=== PATIENT | male | born 1995 | race Caucasian/White ===

== ENCOUNTER 2018-09-23 16:29 | Observation (INO) | payer SELFPAY ==
[~2018-09-23] VITALS: Ht 185.4 cm; Wt 77.2 kg
[2018-09-23] MEDS ORDERED: VYVANSE40 MG PO (16:59)
--- NOTE | 2018-09-23 21:00 | NUR ---
PT ARRIVES TO ROOM 129 AT 2024 VIA STRETCHER. PT ABLE TO MOVE HIMSELF OVER ONTO THE BED WITH MINIMAL ASSISTANCE. PT IS DROWSY, BUT ANSWERS QUESTIONS APPROPRIATELY. LUNGS CLEAR, RA. HR 100, REGULAR. BOWEL TONES ACTIVE. DENIES PAIN AND NAUSEA. IV SITES PATENT, INFUSING WNL. CB, TITRATED INSULIN DRIP TO 2.4 UNITS/HR (WAS 4.2 UNITS/HR UPON ARRIVAL), VERIFIED WITH FADY DUARTE. IVF SWITCHED TO D5 1/2NS AND BICARB INFUSION STARTED. SKIN APPEARS GROSSLY INTACT. CALL LIGHT WITHIN REACH.
--- NOTE | 2018-09-23 21:30 | NUR ---
PT VOIDED 1000ML INTO URINAL, SPILLED A LITTLE ON HIS UNDERWEAR SO I HAD HIM REMOVED THEM AND I PLACED THEM IN A PLASTIC BAG AND PLACED WITH HIS BELONGINGS. LAB IN TO DRAW SAMPLE AT THIS TIME.
--- NOTE | 2018-09-23 22:00 | NUR ---
CB, INSULIN DRIP TITRATED TO 1 UNIT/HR, VERIFIED WITH FADY DUARTE.
--- NOTE | 2018-09-23 23:02 | NUR ---
CB, TITRATED INSULIN DRIP TO 1.2 UNITS/HR, VERIFIED WITH FADY BUCHANAN.
--- NOTE | 2018-09-24 00:05 | NUR ---
CB, NO TITRATION OF INSULIN DRIP REQUIRED AT THIS TIME. PT IS SLEEPING SOUNDLY, RESPIRATIONS EVEN AND UNLABORED, RR:17, SPO2: 99% ON RA. HR: 110'S. PT DOES NOT APPEAR TO BE IN ANY DISTRESS. IVF INFUSING WNL.
--- NOTE | 2018-09-24 01:00 | NUR ---
CB, INSULIN DRIP TITRATED TO 2.8 UNITS/HR, VERIFIED WITH FADY DUARTE.
--- NOTE | 2018-09-24 02:00 | NUR ---
CB, INSULIN DRIP TITRATED TO 2.4 UNITS/HR, VERIFIED BY FADY BUCHANAN.
--- NOTE | 2018-09-24 03:04 | NUR ---
CB, NO TITRATION OF INSULIN DRIP REQUIRED AT THIS TIME. PT CONTINUES TO SLEEP SOUNDLY. RR:16, HR: 108, SPO2: 96% ON RA.
--- NOTE | 2018-09-24 03:28 | NUR ---
UPDATED DR. VARGAS REGARDING PT'S LAB RESULTS OF POTASSIUM: 3.3, ORDERS RECEIVED FOR 40 MEQ IV POTASSIUM CHLORIDE. ALSO UPDATED HIM ON REMAINDER OF LAB RESULTS, ORDERS RECEIVED TO STOP BICARB INFUSION AT THIS TIME, TO BE RE-EVALUATED AFTER 0600 LABS.
--- NOTE | 2018-09-24 04:00 | NUR ---
CB, TITRATION OF INSULIN DRIP NOT REQUIRED AT THIS TIME. PT TEMPORAL TEMP WAS 99.6, REMOVED ALL EXTRA BLANKETS AND JUST COVERED PT WITH SHEET, ALSO DECREASED ROOM TEMP SLIGHTLY. LUNGS REMAIN CLEAR, RA. HR REGULAR, TACHY 100-110. IVF INFUSING WNL, DRESSINGS INTACT. POTASSIUM INFUSION STARTED. PT CONTINUES TO SLEEP SOUNDLY, NO APPARENT DISTRESS, RR:16. PT'S FRIEND ASLEEP ON COUCH.
--- NOTE | 2018-09-24 05:00 | NUR ---
CB, TITRATED INSULIN DRIP TO 1 UNIT/HR, VERIFIED WITH GERALD SHRESTHA.
--- NOTE | 2018-09-24 06:00 | NUR ---
CB, NO TITRATION OF INSULIN DRIP REQUIRED AT THIS TIME. PT STIRRED WHILE BP CUFF WAS INFLATING, STATING "IT HURTS." I TOLD HIM WHAT WAS HAPPENING AND THAT IT WOULD BE OVER SOON AND HE QUICKLY FELL BACK ASLEEP. CLEAN GOWN PLACED ON PT.
--- NOTE | 2018-09-24 07:02 | NUR ---
CB, NO TITRATION OF INSULIN DRIP REQUIRED AT THIS TIME.
--- NOTE | 2018-09-24 07:35 | NUR ---
PT RESTING IN BED AT THIS TIME. PT HAS A FRIEND IN THE ROOM. PER REPORT PT HAS BEEN SLEEPING MOST OF THE NIGHT. PT DENIES ANY NEEDS AT THIS TIME. WILL CONTINUE TO CLOSELY MONITOR.
--- NOTE | 2018-09-24 08:30 | NUR ---
ASSESSMENT DONE. pt RESTING WITH EYES CLOSED, OBEYS COMMANDS, DID NOT ANSWER QUESTIONS AT THIS TIME, ALLOWED TO SLEEP. IV'S PATENT. TITRATED INSULIN DRIP TO 1.2 PER BLOOD SUGAR FLOW SHEET. VISITOR AT BEDSIDE. CALL LIGHT WITHIN REACH.
--- NOTE | 2018-09-24 09:00 | NUR ---
CBG DONE. DRIP TITRATED TO 0.9 PER FLOW SHEET.
--- NOTE | 2018-09-24 10:09 | NUR ---
CBG DONE. INSULIN DRIP TITRATED TO 1.2 PER FLOW SHEET. URINALS EMPTIED. NO REQUESTS AT THIS TIME.
--- NOTE | 2018-09-24 11:05 | NUR ---
CBG DONE. NO CHANGES TO INSULIN DRIP PER FLOWSHEET.
--- NOTE | 2018-09-24 11:53 | NUR ---
UPDATED PT ABOUT PLAN OF CARE. UPDATED THAT PATIENT WILL MOST LIKELY STAY ANOTHER DAY AND PT WILL REMAIN ON INSULIN GTT AT THIS TIME AND WILL CHECK NEXT SET OF LABS THIS AFTERNOON. PER MD PT MAY ORDER AN ADA DIET.
--- NOTE | 2018-09-24 14:12 | NUR ---
CBG DONE. INSULIN DRIP TITRATED TO 5.1 PER FLOW SHEET. MD IN ROOM TO ASSESS pt AND UPDATE ON PLAN OF CARE. pt FINISHED LUNCH OF [employer] SALAD. CALL LIGHT WITHIN REACH. NO REQUESTS AT THIS TIME.
--- NOTE | 2018-09-24 16:06 | NUR ---
CBG DONE. TITRATED INSULIN TO 2 PER FLOWSHEET. ASSESSMENT DONE. pt AWAKE AND ALERT. ATE JELLO AND WAS PROVIDED DIET COLA. NO FURTHER REQUESTS AT THIS TIME. CALL LIGHT WITHIN REACH.
--- NOTE | 2018-09-24 17:16 | NUR ---
CBG DONE. TITRATED INSULIN TO 2.4 PER FLOWSHEET. DINNER ORDERED. ENCOURAGED pt TO VOID. CALL LIGHT WITHIN REACH.
--- NOTE | 2018-09-24 17:36 | EKG ---
[facility] [address] [facility] [place] [address] Signed Sinus tachycardia with Possible Left atrial enlargement Nonspecific ST and T wave abnormality Abnormal ECG No previous ECGs available Confirmed by FRANC VARGAS DO ([id number]) on 09/24/2018 5:35:53 PM Electronically Signed By: FRANC VARGAS DO 09/24/18 1736 PATIENT NAME: GREYSON VAZQUEZ GLADIS Electrocardiogram DATE OF : [birth year] PHYSICIAN: FRANC VARGAS DO REPORT #: [id number] REPORT IS CONFIDENTIAL AND NOT TO BE RELEASED WITHOUT AUTHORIZATION
--- NOTE | 2018-09-24 18:04 | NUR ---
pt REQUESTED A NICOTINE LOZENGE, OFFERED PATCH, pt REFUSED. ORDER ENTERED NIO. CBG DONE, NO CHANGES TO INSULIN DRIP AT THIS TIME PER FLOWSHEET. MORE FOOD ORDERED PER REQUEST.
--- NOTE | 2018-09-24 19:30 | NUR ---
SHIFT REPORT RECEIVED FROM FADY RIVERA. PT IS CURENTLY SITTING UP IN BED AND WATCHING TV. HE HAS FINISHED 100% OF HIS DINNER TRAY AND IS TOLERATING WELL. INSULIN DRIP CURRENTLY INFUSING AT 5.1 UNITS/HR. IVF ALSO INFUSING WNL. CALL LIGHT WITHIN REACH.
--- NOTE | 2018-09-24 20:00 | NUR ---
CB, INSULIN DRIP TITRATED TO 8.4 UNITS/HR, VERIFIED WITH FADY COLON. ASSESSMENT COMPLETED, SEE DOCUMENTATION. PT DENIES REQUESTS AT THIS TIME, CALL LIGHT IS WITHIN REACH.
--- NOTE | 2018-09-24 21:00 | NUR ---
DR. VARGAS IN UNIT, DISCUSSED WITH HIM PT'S MOST RECENT LAB VALUES, NEW ORDERS ENTERED BY MD. PLAN TO ADMINSTER LANTUS AND D/C INSULIN DRIP AND IVF IN 1 HOUR. CB, TITRATED INSULIN DRIP TO 6.8 UNITS/HR, VERIFIED WITH ISAIAH SHRESTHA. 5 UNITS SLIDING SCALE AND 35 UNITS LANTUS ADMINISTERED. PT PROVIDED WITH 2X SUGAR-FREE PUDDINGS PER REQUEST. 40MEQ PO POTASSIUM ADMINISTERED PER ORDER AND 40MEQ IV POTASSIUM STARTED.
--- NOTE | 2018-09-24 22:00 | NUR ---
INSULIN DRIP AND D5 1/2 NS IVF STOPPED AT THIS TIME. LEFT AC IV SALINE LOCKED, PATENT. POTASSIUM INFUSION CONTINUES IN RIGHT AC, NO S/SX OF INFILTRATION NOTED.
--- NOTE | 2018-09-25 00:15 | NUR ---
ASSESSMENT COMPLETED. HR NO LONGER TACHY, RATE IN THE 80'S. OTHERWISE, NO CHANGES FROM PREVIOUS ASSESSMENT.
--- NOTE | 2018-09-25 01:20 | NUR ---
IV POTASSIUM INFUSION COMPLETED, IV SALINE LOCKED AND PATENT. SITE APPEARS WNL, DRESSING INTACT.
--- NOTE | 2018-09-25 04:15 | NUR ---
PT SLEEPING AT THIS TIME, NO APPARENT DISTRESS. RESPIRATIONS EVEN AND UNLABORED, RR:16, HR:86. CHECKED CBG TO MAKE SURE PT'S BLOOD SUGAR HADN'T DROPPED SINCE RECEIVING LANTUS, CB. WILL ALLOW FOR REST AND CONTINUE TO MONITOR.
--- NOTE | 2018-09-25 08:15 | NUR ---
PT ALERT AND ORIENTED X4, UP AMBULATED TO THE BATHROOM ON HIS OWN. PT ABLE TO VOID. PT DOES OWN ORAL CARES/AM CARES. PT STEADY ON HIS FEET. PT DENIES NAUSEA, PAIN, AND SOB. VITALS WNL AT THIS TIME. PT COOPERATIVE AND POLITE. PT THEN TO CHAIR FOR BREAKFAST.
--- NOTE | 2018-09-25 09:20 | NUR ---
PT FINISHED WITH SHOWER, AMBULATES BACK TO ROOM FROM 126 INDEPENDENTLY. PT COMPLETLY INDEPENDENT IN SHOWER.
[2018-09-25] MEDS ORDERED: PALIPERIDONE ER6 MG PO (09:38)
[2018-09-25] MEDS ORDERED: NOVOLOG FL100 UNIT/1 SUB-Q (09:40)
[2018-09-25] MEDS ORDERED: TOUJEO SOL300 UNIT/1 SUB-Q ×2 (09:40→11:25)
[2018-09-25] MEDS ORDERED: VYVANSE30 MG PO (11:12)
--- NOTE | 2018-09-25 11:12 | NUR ---
PT SITTING UP IN CHAIR WATCHING TV AT THIS TIME. DENIES PAIN, NAUSEA, AND SOB AT THIS TIME. PT AMBULATES INDEPENDENTLY IN THE ROOM. PT IS ALERT AND ORIENTED X4.
--- NOTE | 2018-09-25 11:13 | NUR ---
MED REC COMPLETE
[2018-09-25] MEDS ORDERED: NICORETTE4 M2 BUCCAL (11:23)
--- NOTE | 2018-09-25 13:10 | NUR ---
FOUR DOLLARS IN BROWN FOUND IN PT ROOM. CONTACT PHONE NUMBER CALLED. MONEY PLACED IN A LARGE ENVALOPE WITH PT LABLE ON OUTSIDE AT THE LENS GRINDER.
== END 2018-09-25 12:40 | disposition home or self-care (01) ==
LOC: ED 16:29 → CCU 16:31
PROVIDERS: ADMIT Student in an Organized Health Care Education/Training Program
DX: E10.10 Type 1 diabetes mellitus with ketoacidosis without coma (principal); E86.0 Dehydration; F20.9 Schizophrenia, unspecified; F17.200 Nicotine dependence, unspecified, uncomplicated; F15.10 Other stimulant abuse, uncomplicated; Z79.899 Other long term (current) drug therapy; Z79.4 Long term (current) use of insulin
CPT/HCPCS: 36415; 36600; 71045; 80048; 80053; 81001; 82010; 82803; 83605; 83735; 84100; 85025; 87502; 93005; 93010; 96361; 96365; 96366; 96374; 96375; 96376; 99285-25; 99406; G0378; J1815; J2405; J3480; J7030; J7042; J7060; J7120

== ENCOUNTER 2018-10-16 18:29 | Emergency (ER) | payer SELFPAY ==
[~2018-10-16] VITALS: Ht 188 cm; Wt 80.8 kg
--- OUTSIDE RECORDS SUMMARY | ~2018-10-16 | XMS | Clinical Summary ---
Demographics + + + | Address | [address] ADDRESS | | | [place] [address] | + + + | Home Phone | | + + + | Preferred Language | Unknown | + + + | Marital Status | Single | + + + | Zoroastrian Affiliation | Unknown | + + + | Race | Unknown | + + + | Ethnic Group | Unknown | + + + Author + + + | Author | [facility] | | | and [place] | + + + | Organization | [facility] | | | and [place] | + + + | Address | Unknown | + + + | Phone | Unavailable | + + + Support + + + + + | Name | Relationship | Address | Phone | + + + + + | Jackie Heath | ECON | [address] | | | | | [place] | | | | | [address] | | + + + + + Care Team Providers + +------+ + | Care Assembler [employer] Name | Role | Phone | + +------+ + | Tamera Hay NP | PP | | + +------+ + Allergies No Known Allergies Current Medications + + + +---------+------+------+-------+ | Prescription | Sig. | Disp. | Refills | Star | End | Statu | | | | | | t | Date | s | | | | | | Date | | | + + + +---------+------+------+-------+ | insulin aspart | Inject 1 Units under | 3 | 1 | 12/1 | | Activ | | (NOVOLOG PENFILL) | the skin 3 times | Cartridge | | 2/20 | | e | | 100 units/mL | daily (before | | | 17 | | | | injection cartridge | meals). 1 unit per | | | | | | | | 15 gm carbsPlus | | | | | | | | sliding scale1 unit | | | | | | | | to 50 mg/liter over | | | | | | | | 110-115 | | | | | | + + + +---------+------+------+-------+ | insulin glargine | Inject 80 Units | 3 pen | 1 | 12/1 | | Activ | | (TOSANTO SOLOSTAR) | under the skin | | | 2/20 | | e | | 300 units/mL | nightly. | | | 17 | | | | concentrated | | | | | | | | injection (pen) | | | | | | | + + + +---------+------+------+-------+ Active Problems + + + | Problem | Noted Date | + + + | Hypophosphatemia | 06/21/2018 | + + + | Hypokalemia | 06/21/2018 | + + + | Acute kidney injury (HCC) | 06/20/2018 | + + + | Methamphetamine abuse (HCC) | 06/20/2018 | + + + | Toxic metabolic encephalopathy | 06/20/2018 | + + + | Sternal pain | 06/19/2018 | + + + | Diabetic ketoacidosis without coma associated with type 1 | 06/30/2017 | | diabetes mellitus (HCC) | | + + + + + | Last Assessment & Plan: DKA protocol as ordered. | | Electrolyte monitoring and follow on closure of anion gap. | | Aggressive IV fluid resuscitation. | | Telemetry monitoring. | | Supportive care and symptomatic treatment. | | Antiemetics as needed. | | Checking hemoglobin A1c. | | Diabetic education and teaching. | | Diabetic diet as ordered. | + + + + + | Uncontrolled diabetes mellitus type 1 without complications (HCC) | 06/30/2017 | + + + + + | Last Assessment & Plan: After DKA resolved.Glargine and | | lispro insulin titration as needed.Insulin slide scale and | | Accu-Cheks with titration as needed for therapeutic glucose | | level.Checking hemoglobin A1c.Diabetic education and | | teaching.Diabetic diet as ordered. | + + Immunizations + + + + | Name | Dates Previously Given | Next Due | + + + + | DTAP, 5 DOSE (PED) | 04/01/2001, 10/19/1999, 11/15/1998, | | | | 08/30/1998 | | + + + + | DTP (PED) | 07/02/1998, 06/02/1998 | | + + + + | HIB HBOC CONJUGATE, | 07/02/1998, 06/02/1998 | | | 4 DOSE (PED) | | | + + + + | Hep B (PED/ADOL) 3 | 11/15/1998, 08/30/1998, 07/02/1998, | | | DOSE | 06/02/1998 | | + + + + | IPV, 4 DOSE | 04/01/2001 | | | (PED/ADULT) | | | + + + + | MMR, 2 DOSE | 08/30/1998, 07/02/1998, 06/02/1998 | | | (PED/ADULT) | | | + + + + | PNEUMOCOCCAL | 03/20/2018 | | | POLYSACCHARIDE | | | | 23-VALENT (PPSV23) | | | + + + + | POLIOVIRUS,OPV | 11/15/1998, 08/30/1998, 07/02/1998, | | | (LIVE) | 06/02/1998 | | + + + + | TDAP, (ADOL/ADULT) | 03/20/2018 | | + + + + | VARICELLA, 2 DOSE | 04/01/2001 | | | (VARIVAX) | | | + + + + Social History + +-------+ +--------+------+ | Tobacco Use | Types | Packs/Day | Years | Date | | | | | Used | | + +-------+ +--------+------+ | Current Every Day | | 0.5 | 8 | | | Smoker | | | | | + +-------+ +--------+------+ + +---+---+---+ | Smokeless Tobacco: | | | | | Current User | | | | + +---+---+---+ + + | Tobacco Cessation: Ready to Quit: No; Counseling Given: No | + + + + +---------+ + | Alcohol Use | Drinks/We | oz/Week | Comments | | | ek | | | + + +---------+ + | Yes | 2 | 2.4 | Denies drinking everyday | | | Glasses | | | | | of wine | | | | | 2 Cans of | | | | | beer | | | + + +---------+ + + + + | Sex Assigned at | Date Recorded | | | | + + + | Not on file | | + + + Last Filed Vital Signs + + + + | Vital Sign | Reading | Time Taken | + + + + | Blood Pressure | 136/76 | 06/21/2018 1300 PST | + + + + | Pulse | 97 | 06/21/2018 1300 PST | + + + + | Temperature | 37 C (98.6 F) | 06/21/2018 1112 PST | + + + + | Respiratory Rate | 15 | 06/21/2018 1300 PST | + + + + | Oxygen Saturation | 95% | 06/21/2018 1300 PST | + + + + | Inhaled Oxygen | - | - | | Concentration | | | + + + + | Weight | 82.5 kg (181 lb 14.1 | 06/21/2018 0400 PST | | | oz) | | + + + + | Height | 188 cm (6' 2") | 06/20/2018404 PST | + + + + | Body Mass Index | 23.35 | 06/21/2018399 PST | + + + + Plan of Treatment + + + + + | Health Maintenance | Due Date | Last Done | Comments | + + + + + | Well Child Check | | | | | | 0 | | | + + + + + | Vaccine: HPV (1 - | | | | | Male 3-dose series) | 2 | | | + + + + + | Diabetic Eye Exam | | | | | | 5 | | | + + + + + | Diabetic Foot Exam | | | | | | 5 | | | + + + + + | Vaccine: Influenza | | | | | (#1) | 8 | | | + + + + + | Hemoglobin A1c Q3 | | 06/20/2018, 12/06/2017, | | | Months | 9 | 07/01/2017 | | + + + + + | Vaccine: | | 03/20/2018, 04/01/2001, | | | Dtap/Tdap/Td (7 - | 8 | 10/19/1999, Additional history | | | Td) | | exists | | + + + + + | Vaccine: | Completed | 03/20/2018 | | | Pneumococcal 19-64 | | | | | (PPSV23 only) Medium | | | | | Risk | | | | + + + + + Results Not on filefrom Last 3 Months Insurance + +--------+ +------+ +---------+ | Payer | Benefi | Subscriber | Type | Phone | Address | | | t Plan | ID | | | | | | / | | | | | | | Group | | | | | + +--------+ +------+ +---------+ | [facility] | [place] | [id number] | PPO | [phone] | | | | | | | [phone] | | | | HEALTH | | | | | | | CARE | | | | | | | PPO | | | | | + +--------+ +------+ +---------+ + +--------+ +--------+ + + | Guarantor Name | Accoun | Relation to | Date | Phone | Billing Address | | | t Type | Patient | of | | | | | | | | | | + +--------+ +--------+ + + | JUNIOR VAZQUEZ | Person | Self [birth year] | Home: | NEED ADDRESS | | | al/Fam | | 1994 | [phone] | [place] | | | nicole | | | [phone] | + +--------+ +--------+ + + | UJNIOR VAZQUEZ | Third | Self | [birth year] | Home: | NEED ADDRESS | | | Republican | | 1994 | [phone] | [place] | | | [place] | | | [phone] | [phone] | | | [place] | | | | | + +--------+ +--------+ + +
--- OUTSIDE RECORDS SUMMARY | ~2018-10-16 | XMS | Clinical Summary ---
Demographics + + + | Address | [address] ADDRESS | | | [place] [address] | + + + | Home Phone | | + + + | Preferred Language | Unknown | + + + | Marital Status | Single | + + + | Anabaptist Affiliation | Unknown | + + + | Race | Unknown | + + + | Ethnic Group | Unknown | + + + Author + + + | Author | [facility] | | | and [place] | + + + | Organization | [facility] | | | and [...] [place] | | | | | [phone] | | + + + + + Care Team Providers + +------+ + | Care Market Research Associate Name | Role | Phone | + [...] | | + +--------+ +------+ +---------+ | [facility] | [place] | [id number] | PPO | [phone] | | | | | | | [...] al/Fam | | 1994 | [phone] | [place] | | | nicole | | | [phone] | [phone] | + +--------+ +--------+ + + | JUNIOR VAZQUEZ | Third | Self | [birth year] | Home: | NEED ADDRESS | | | [employer] | | 1994 | [phone] | [place] | | | [place] | | | [phone] | [phone] | | | [place] | | | | | + +--------+ +--------+ + +
[~2018-10-16 18:29] MED LIST: NICORETTE4 M2 BUCCAL; NOVOLOG FL100 UNIT/1 SUB-Q; PALIPERIDONE ER6 MG PO; TOUJEO SOL300 UNIT/1 SUB-Q; VYVANSE30 MG PO; VYVANSE40 MG PO
--- OUTSIDE RECORDS SUMMARY | 2018-10-16 18:32 | XMS ---
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 Ari has no Care Guidelines for this patient. Jerry VISIT COUNT (12 MO.) 2 [facility] [place] [facility] TOTAL 2 NOTE: Visits indicate total known visits. ED/[facility] VISIT TRACKING (12 MO.) 10/16/2018 18:29 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
[2018-10-16] MEDS ORDERED: LANTUS100 UNITS/ SUB-Q (21:46)
== END 2018-10-16 21:59 | disposition home or self-care (01) ==
LOC: ED 18:29
DX: E10.65 Type 1 diabetes mellitus with hyperglycemia (principal); J45.909 Unspecified asthma, uncomplicated; F17.200 Nicotine dependence, unspecified, uncomplicated; Z79.899 Other long term (current) drug therapy
CPT/HCPCS: 80053; 82010; 82800; 85025; 96361; 96374; 99284-25; J1815; J7030

== ENCOUNTER 2019-03-31 22:08 | Observation (INO) | payer OTHER ==
[~2019-03-31] VITALS: Ht 188 cm; Wt 68.6 kg
[~2019-03-31 22:08] MED LIST changes: +LANTUS100 UNITS/ SUB-Q
--- OUTSIDE RECORDS SUMMARY | 2019-03-31 22:12 | XMS ---
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 Ari has no Care Guidelines for this patient. Jerry VISIT COUNT (12 MO.) 3 [facility] TOTAL 3 NOTE: Visits indicate total known visits. 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 - Nicotine dependence, unspecified, uncomplicated - Unspecified asthma, uncomplicated 09/23/2018 16:30 [facility] [place] TYPE: Emergency COMPLAINT: - SOB INPATIENT VISIT TRACKING (12 MO.) 09/23/2018 16:31 [facility] [place] TYPE: Observation COMPLAINT: - DKA DIAGNOSES: - Schizophrenia, unspecified - 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
--- NOTE | 2019-04-01 02:13 | NUR ---
PT ADMITTED TO CCU FOR ENCEPHALOPATHY. PT IS VERY SLEEPY, DIFFICULT TO AROUSE AND PUPILS ARE VERY SLUGGISH. DOES ANSWER QUESTIONS WITH YES OR NO WITH MUCH VERBAL STIMULATION. TRANSFERRED TO BED FROM [facility] USING DRAW SHEET, PT SLEPT THROUGH. VSS. BLOOD SUGAR 225, WILL GIVE LANTUS AND 2 UNITS SS INSULIN. BOLUS CURRENTLY INFUSING THEN WILL START IVF AT 150ML/HR. IV ROCEPHIN STARTED.
--- NOTE | 2019-04-01 04:31 | NUR ---
PT CONTINUES TO SLEEP. AWAKENS SLIGHTLY FOR ASSESSMENT, ANSWERS NO WHEN ASKED IF HE IS IN PAIN. OCCASIONALLY TURNING SELF OVER IN BED/ADJUSTING PILLOWS AND BLANKETS.
--- NOTE | 2019-04-01 07:22 | NUR ---
PT AWAKENS TO VOID, USES URINAL IN BED TO VOID 1000ML
--- NOTE | 2019-04-01 08:34 | NUR ---
PT ALSEEP BUT AWAKENS WHEN SPOKEN TO. PT DENIES PAIN AT THIS TIME.
[2019-04-01] MEDS ORDERED: TOUJEO SOL300 UNIT/1 SUB-Q (09:11)
--- NOTE | 2019-04-01 09:41 | NUR ---
DR WEST INTO SEE PT NEW ORDERS RECEIVED. PT IS AWAKE SITTING UP IN BED EATTING BKF AT THIS TIME. PT IS TAKE ORAL INTAKE WELL AND IS COOPERATIVE WITH HOSPITAL ROUTINE.
--- NOTE | 2019-04-01 10:06 | NUR ---
PT ATE BKF AND IS NOW ASLEEP AT THIS TIME. RESP RATE EVEN AND SPO2 100% ON ROOM AIR.
--- NOTE | 2019-04-01 12:50 | NUR ---
PT AWAKE AND EATTING LUNCH IN BED AT THIS TIME
--- NOTE | 2019-04-01 13:27 | NUR ---
PT SLEEPING AT THIS TIME.
--- NOTE | 2019-04-01 13:36 | NUR ---
FADY PARK REQUESTED I NOT VISIT PT TODAY PER DR WEST'S ORDERS. WILL FOLLOW NEEDED
--- NOTE | 2019-04-01 13:58 | NUR ---
LAB HERE TO OBTAIN SAMPLE AT THIS TIME. CBG OBTAINED ALSO AT THIS TIME.
[2019-04-01] MEDS ORDERED: AMOXICILLIN500 MG PO (14:37)
--- NOTE | 2019-04-01 15:23 | NUR ---
PT DISCHARGED TO HOME WITH HIS CECILIA. SHE IS HERE AT THIS TIME, BUT PT CONTIOUES TO WANT TO SLEEP. PT IS VERY PASTIVE WITH STAFF ABOUT FOLLOW-UP CARE. ENCOURAGE PT TO GET DRESS AND OFFERED TO HELP HIM, BUT HE CONTIOUES TO SLEEP.
--- NOTE | 2019-04-01 15:34 | NUR ---
PT DISCHARGED TO [facility]. SHE WAS GIVEN INFORMATION AND ALL QUESTIONS ANSWERED. ENCOURAGE THEM TO METAL FLOORING INSTALLER THE MEDICATION ABX'S AT RIGHT AID AND IF THEY HAVE PROBLEMS DUE TO THE LACK OF INSURANCE TO CALL OR COME BACK TO THE HOSPITAL AND THIS MD PSYCHIATRY WILL HELP THEM GET THE ABX'S.
== END 2019-04-01 15:30 | disposition home or self-care (01) ==
LOC: ED 22:08 → CCU 22:10
PROVIDERS: ADMIT Internal Medicine
DX: G92 Toxic encephalopathy (principal); N17.9 Acute kidney failure, unspecified; E10.10 Type 1 diabetes mellitus with ketoacidosis without coma; E86.0 Dehydration; F17.200 Nicotine dependence, unspecified, uncomplicated; F15.10 Other stimulant abuse, uncomplicated; J02.0 Streptococcal pharyngitis; F20.0 Paranoid schizophrenia; Z79.899 Other long term (current) drug therapy; Z79.4 Long term (current) use of insulin
CPT/HCPCS: 36415; 70450; 71045; 80048; 80053; 81001; 82010; 82800; 83605; 85025; 85610; 85730; 87880; 96374; 99285-25; G0378; G0480; J0696; J1815; J2310; J7030; J7120; J7121

== ENCOUNTER 2019-04-27 20:26 | Observation (INO) | payer OTHER ==
[~2019-04-27] VITALS: Ht 188 cm; Wt 66.2 kg
[~2019-04-27 20:26] MED LIST changes: +AMOXICILLIN500 MG PO
--- OUTSIDE RECORDS SUMMARY | 2019-04-27 20:28 | XMS ---
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 Ari has no Care Guidelines for this patient. [facility] NOTE: Visits indicate total known visits. ED/C VIS[facility] TR[facility] (12 MO.) [facility] COMPLAINT: - DIABETIC ISSUES,SUICIDAL 03/31/2019 22:09 [facility] [place] TYPE: Emergency COMPLAINT: - DRUG USE, VOMITING, DIABETIC PROBLEM 10/16/2018 18:29 [facility] [place] TYPE: Emergency COMPLAINT: - BLOOD SUGAR PROBLEM DIAGNOSES: - Type 1 diabetes mellitus with hyperglycemia - Hyperglycemia, unspecified - Other [place] [facility] (current) drug therapy - Nicotine dependence, unspecified, uncomplicated - Unspecified asthma, uncomplicated 09/23/2018 16:30 [facility] [place] TYPE: Emergency COMPLAINT: - SOB INPATIENT VISIT TRACKING (12 MO.) 03/31/2019 22:10 [facility] [place] TYPE: Observation COMPLAINT: - ENCEPHALOPATHY DIAGNOSES: - Altered mental status, unspecified - jail (current) use of insulin - Streptococcal pharyngitis - Other stimulant abuse, uncomplicated - Dehydration - Acute kidney failure, unspecified - Type 1 diabetes mellitus with ketoacidosis without coma - Other [place] [facility] [place] (current) drug therapy - Nicotine dependence, unspecified, uncomplicated - Toxic encephalopathy - Paranoid schizophrenia 09/23/2018 16:31 [facility] [place] TYPE: Observation COMPLAINT: - DKA DIAGNOSES: - Schizophrenia, unspecified - jail (current) use of insulin - Other stimulant abuse, uncomplicated - Nicotine dependence, unspecified, uncomplicated - 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
[2019-04-28] MEDS ORDERED: NOVOLOG FL100 UNIT/1 SUB-Q (08:49)
[2019-04-28] MEDS ORDERED: TOUJEO SOL300 UNIT/1 SUB-Q ×2 (08:50→11:18)
[2019-04-28] MEDS ORDERED: FREESTYLE LITE1 EAC1 TD (08:50)
[2019-04-28] MEDS ORDERED: FREESTYLE FREE1 EAC1 MISC (08:51)
== END 2019-04-28 11:25 | disposition home or self-care (01) ==
LOC: ED 20:26 → CCU 20:38
PROVIDERS: ADMIT Student in an Organized Health Care Education/Training Program
DX: E10.10 Type 1 diabetes mellitus with ketoacidosis without coma (principal); F17.200 Nicotine dependence, unspecified, uncomplicated; F20.9 Schizophrenia, unspecified; F15.10 Other stimulant abuse, uncomplicated; Z59.0 Homelessness; Z79.4 Long term (current) use of insulin; Z79.899 Other long term (current) drug therapy
CPT/HCPCS: 36415; 80048; 80053; 81001; 82010; 83735; 84100; 85025; 96361; 96374; 99285-25; G0378; G0480; J1815; J3480; J7030; J7042; J7060; J7120

== ENCOUNTER 2019-05-25 20:20 | Emergency (ER) | payer OTHER ==
[~2019-05-25] VITALS: Ht 188 cm; Wt 81.7 kg
[~2019-05-25 20:20] MED LIST changes: +FREESTYLE FREE1 EAC1 MISC; +FREESTYLE LITE1 EAC1 TD
--- OUTSIDE RECORDS SUMMARY | 2019-05-25 20:24 | XMS ---
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 [place] - 2 Visits in 30 Days CARE PROVIDERS There are no care providers on record at this time. Ari has no Care Guidelines for this patient. Care History Medical/Surgical 04/30/2019 [facility] Inpatient/engaged. We took the patient to detox. [place] VISIT COUNT (12 MO.) 5 [facility]. TOTAL 5 NOTE: Visits indicate total known visits. ED/UCC VISIT TRACKING (12 MO.) 05/25/2019 20:21 [facility] Kulkarni [place] TYPE: Emergency COMPLAINT: - BLOOD SUGAR ISSUES 04/27/2019 20:27 [facility] P[facility] [place] TYPE: Emergency COMPLAINT: - DIABETIC ISSUES,SUICIDAL 03/31/2019 22:09 [facility] P[facility]ell [place] TYPE: Emergency COMPLAINT: - DRUG USE, VOMITING, DIABETIC PROBLEM 10/16/2018 18:29 [facility] Parnell [place] TYPE: Emergency COMPLAINT: - BLOOD SUGAR PROBLEM DIAGNOSES: - 1 Type 1 diabetes mellitus with hyperglycemia - Hyperglycemia, unspecified - Other terminal system operator (current) drug therapy - Nicotine dependence, unspecified, uncomplicated - Unspecified asthma, uncomplicated 09/23/2018 16:30 [facility] P[facility]ell [place] TYPE: Emergency COMPLAINT: - SOB INPATIENT VISIT TRACKING (12 MO.) 04/27/2019 20:38 [facility]ell [place] TYPE: Observation COMPLAINT: - DKA DIAGNOSES: - Other stimulant abuse, uncomplicated - Schizophrenia, unspecified - Homelessness - Other terminal system operator (current) drug therapy - shelter (current) use of insulin - Nicotine dependence, unspecified, uncomplicated - 1 Type 1 diabetes mellitus with ketoacidosis without coma 03/31/2019 22:10 [facility] P[facility]ell [place] TYPE: Observation COMPLAINT: - ENCEPHALOPATHY DIAGNOSES: - Altered mental status, unspecified - shelter (current) use of insulin - Streptococcal pharyngitis - Other stimulant abuse, uncomplicated - Dehydration - Acute kidney failure, unspecified - 1 Type 1 diabetes mellitus with ketoacidosis without coma - Other assisted (current) drug therapy - Nicotine dependence, unspecified, uncomplicated - Toxic encephalopathy - Paranoid schizophrenia 09/23/2018 16:[address] 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
== END 2019-05-26 02:27 | disposition home or self-care (01) ==
LOC: ED 20:20
DX: E10.65 Type 1 diabetes mellitus with hyperglycemia (principal); J45.909 Unspecified asthma, uncomplicated; F17.200 Nicotine dependence, unspecified, uncomplicated; Z79.899 Other long term (current) drug therapy
CPT/HCPCS: 80048; 80053; 81001; 82010; 82803; 85025; 96361; 96374; 99284-25; J1815; J3480; J7030

== ENCOUNTER 2020-01-06 20:13 | Observation (INO) | payer OTHER ==
[~2020-01-06] VITALS: Ht 188 cm; Wt 74.4 kg
--- NOTE | 2020-01-07 00:09 | NUR ---
Report received from FADY Adams. Orders acknowledged.
--- NOTE | 2020-01-07 00:20 | NUR ---
Patient arrives to unit via stretcher. Insulin gtt infusing at 4.2 units/hr. Patient able to ambulate to hospital bed independently, steady on feet. Vital signs taken, assessment complete. Patient denies pain or nausea. Patient requests water and a sandwich, which are provided. Patient drowsy during admission assessment, rouses to voice. After admission, patient denies needs at this time. Lights off, call light within reach.
--- NOTE | 2020-01-07 01:19 | NUR ---
Patient sleeping in bed, respirations even and unlabored. BG of 241, insulin gtt titrated to 3.4 units/hr. Second RN verification by FADY Valdes. Call light within reach.
--- NOTE | 2020-01-07 02:00 | NUR ---
Patient sleeping in bed, respirations even and unlabored. BG of 277, insulin gtt titrated to 6.3 units/hr. Second RN verification. Call light within reach.
--- NOTE | 2020-01-07 03:05 | NUR ---
Patient sleeping in bed, respirations even and unlabored. BG of 281, insulin gtt titrated to 8.4 units/hr. Second RN verification. Call light within reach.
--- NOTE | 2020-01-07 04:00 | NUR ---
Patient sleeping in bed, respirations even and unlabored. BG of 261, insulin gtt remains titrated at 8.4 units/hr. Call light within reach.
--- NOTE | 2020-01-07 05:00 | NUR ---
Patient sleeping in bed, respirations even and unlabored. BG of 173, insulin gtt titrated to 4.8 units/hr. Call light within reach.
--- NOTE | 2020-01-07 06:04 | NUR ---
Patient sleeping in bed, respirations even and unlabored. BG of 172, insulin gtt remains titrated at 4.8 units/hr. Call light within reach.
--- NOTE | 2020-01-07 07:30 | NUR ---
PATIENT SHIFT REPORT RECIEVED FROM OIL INSPECTOR RN. PATIENT RESTING IN BED AT THIS TIME. PATIENT CALLS APPROPRIATELY. WILL CONTINUE TO CLOSELY MONITOR.
--- NOTE | 2020-01-07 08:10 | NUR ---
CALLED MD VARGAS. PATIENTS BLOOD SUGAR <100 AND PER INSULIN GTT ORDERS IT DOES NOT DIRECT STAFF WHAT TO DO WHEN <100. PER MD VARGAS WE MAY DC THE GTT AND START HIM ON HIS HOME DOSE OF LONG ACTING INSULIN. PATIENTS BREAKFAST ALREADY ORDERED. PATIENT FEELS FINE A THIS TIME. WILL CONTINUE TO CLSOELY MONITOR.
--- NOTE | 2020-01-07 09:15 | NUR ---
PATIENT FINISHED EATING HIS BREAKFAST. WILL LEAVE INSULIN GTT OFF PER ORDERS. PATIENT DENIES ANY OTHER NEEDS AT THIS TIME. WILL CONTINUE TO CLOSELY MONITOR.
--- NOTE | 2020-01-07 10:00 | NUR ---
SPOKE WITH MD VARGAS. PATIENTS BLOOD SUGAR IS 290'S AFTER BREAKFAST AND HAS NOT BEEN GIVEN SS D/T NO ORDERS. PER MD VARGAS WILL START PATIENT ON SS AT THIS TIME. WILL CONTINUE TO CLOSELY MONITOR.
--- NOTE | 2020-01-07 11:50 | NUR ---
PATIENT RESTING IN BED. FRESH WATER AT THE BEDSIDE. ELECTRICAL CONTROLS ASSEMBLER IN TO DO LABS. CALL LIGHT IN REACH.
[2020-01-07] MEDS ORDERED: MELOXICAM15 MG PO (12:30)
[2020-01-07] MEDS ORDERED: ATOMOXETINE HCL80 MG PO (12:30)
[2020-01-07] MEDS ORDERED: MONTELUKAST SOD10 MG PO (12:30)
--- NOTE | 2020-01-07 12:31 | NUR ---
MED REC COMPLETE
--- NOTE | 2020-01-07 13:00 | NUR ---
PATIENT LUNCH AT THE BEDSDIE. MEDICATIONS GIVEN. FRESH WATER AT THE BEDSIDE. PATIENT DENIES ANY OTHER NEEDS AT THIS TIME. WILL CONTINUE TO CLOSELY MONITOR.
[2020-01-07] MEDS ORDERED: TOUJEO SOL300 UNIT/1 SUB-Q (13:25)
[2020-01-07] MEDS ORDERED: NOVOLOG FL100 UNIT/1 SUB-Q (13:25)
[2020-01-07] MEDS ORDERED: FREESTYLE LITE1 EAC1 TD (13:25)
[2020-01-07] MEDS ORDERED: FREESTYLE FREE1 EAC1 MISC (13:25)
--- NOTE | 2020-01-07 15:15 | NUR ---
DISCHARGE PAPERWORK REVIEWED WITH PATIENT. APPOINTMENT MADE FOR PATIENT AND REVIEWED WITH PATIENT. EDUCATED TO CALL THE DAY PRIOR TO ARRANGE TRANSPORTATION FOR FREE TO AND FROM HIS APPOINTMENT. CASE MANAGEMENT PROVIDED PATIENT WITH A GLUCOMETER. EDUCATED TO PICKUP HIS PRESCRIPTIONS AT [employer] SNACK PROVIDED AT THIS TIME PRIOR TO DISCHARGE. WILL CONTINUE TO CLOSELY MONITOR.
--- NOTE | 2020-01-07 16:04 | NUR ---
PATIENT EDUCATION GATHERED/ SENT WITH PATIENT. RESPIRATORY THERAPY IN TO GIVE EDUCATION FOR SMOKING QUITE LINE. ALL MATERIALS IN PATIENTS BELONING BAG. EDUCATED PATIENT TO CALL AND ARRANGE TRANSPORTATION FOR HIS UPCOMING APPOINTMENT AND TO PRODUCTION INTERNSHIP HIS MEDICATIONS FROM [employer]. PATIENT AGREEABLE TO PLAN OF CARE. REMOVED PATIENTS IV AND GAVE PATIENT A RIDE TO THE FRONT IN THE WHEELCHAIR. PATIENT ARRAGNING A CARE RIDE HOME WITH THE REINSURANCE CLERK STAFF. GLUCOMETER ALSO SENT WITH PATIENT IN HIS PERSONAL BELONGINGS BAG. NO FURTHER NEEDS AT THIS TIME.
--- NOTE | 2020-01-07 16:10 | NUR ---
CM assessment completed. Pt states he is staying with friends, but is couch surfing. He has lost his insulin and his glucometer. Dr. Lr called in rx for meds and glucometer. I gave pt. a glucometer in case he does not make it to the pharmacy today. Pt states he is out of long acting insulin and has lost his glucomet Glucometer given. Spoke with Dr. 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 Pt does not have pcp. Does not care where he is scheduled, appt made with Shi Figueroa at [facility].
== END 2020-01-07 15:50 | disposition home or self-care (01) ==
LOC: ED 20:13 → CCU 20:15
PROVIDERS: ADMIT Student in an Organized Health Care Education/Training Program
DX: E10.10 Type 1 diabetes mellitus with ketoacidosis without coma (principal); F20.9 Schizophrenia, unspecified; F19.10 Other psychoactive substance abuse, uncomplicated; F17.200 Nicotine dependence, unspecified, uncomplicated; Z71.6 Tobacco abuse counseling
CPT/HCPCS: 36415; 80048; 80053; 81001; 82010; 82800; 83735; 85025; 96361; 96374; 99285-25; 99406; C9803; G0378; J1815; J7030; J7042; J7121; U0002

== ENCOUNTER 2020-04-05 06:20 | Inpatient (IN) | payer OTHER ==
[~2020-04-05] VITALS: Ht 188 cm; Wt 72.6 kg
[~2020-04-05 06:20] MED LIST changes: +ATOMOXETINE HCL80 MG PO; +MELOXICAM15 MG PO; +MONTELUKAST SOD10 MG PO
--- NOTE | 2020-04-05 18:35 | PATH ---
[facility] [address] [place], [place] [address] Signed ORDERING PHYSICIAN: Mike Lr MD PATIENT NAME: GREYSON VAZQUEZ GENDER: Scottie : 1995 SPECIMEN(S): No Source Given MOLECULAR PATHOLOGY RESULTS: SARS-CoV-2 Not Detected ADDITIONAL NOTES.: The Sterling Fusion SARS-CoV-2 Assay is a multiplex real-time PCR (RT-PCR) in vitro diagnostic test intended for the qualitative detection of RNA from SARS-CoV-2 from individuals who meet COVID-19 clinical and/or epidemiological criteria. In general, SARS-CoV-2 RNA can be detected during the acute phase of infection. Positive results indicate the presence of SARS-CoV-2 RNA. Clinical correlation with patient history and other diagnostic information is necessary to determine patient infection status. Positive results do not rule out bacterial infection or co-infection with other viruses. Negative results do not preclude SARS-CoV-2 infection and should not be used as the sole basis for patient management decisions. Negative results must be combined with other clinical observations, patient history, and epidemiological information. The Sterling Fusion SARS-CoV-2 Assay is not yet approved or cleared by the [place] FDA. When there are no FDA-approved or cleared tests available, and other criteria are met, FDA can make tests available under an emergency access mechanism called an Emergency Use Authorization (EUA). The EUA for this test is supported by the [place] of Health and Human Service's (HHS's) declaration that circumstances exist to justify the emergency use of in vitro diagnostics for the detection and/or diagnosis of the virus that causes COVID-19. This EUA will remain in effect for the duration of the COVID-19 declaration justifying emergency of IVDs, unless it is terminated or revoked by FDA, after which the test may no longer be used. The Sterling Fusion SARS-CoV-2 Assay is for use only under EUA in US laboratories certified under the Clinical Laboratory Improvement Amendments of 1988 (CLIA) to perform high complexity tests. [email or web address] is certified under CLIA to perform high complexity PATIENT NAME: GREYSON VAZQUEZ PATHOLOGY DATE OF : [birth year] REPORT #: [id number] PHYSICIAN: BENITO FRANCO PCP: NO PRIMARY CARE PHYSICIAN REPORT IS CONFIDENTIAL AND NOT TO BE RELEASED WITHOUT AUTHORIZATION [facility] [address] [place] [id number] Signed clinical laboratory testing. PERFORMING LABORATORY.: Molecular testing was performed by [email or web address] [place] [address] ([employer]: Joe Crane D.O.; CLIA#: [id number]) Diagnostician: System Interface Pathologist Electronically Signed 04/05/2020 Copies: ~ PATIENT NAME: GREYSON VAZQUEZ PATHOLOGY DATE OF : [birth year] REPORT #: [id number] PHYSICIAN: BENITO PATHOLOGY PCP: NO PRIMARY CARE PHYSICIAN REPORT IS CONFIDENTIAL AND NOT TO BE RELEASED WITHOUT AUTHORIZATION
[2020-04-06] MEDS ORDERED: NOVOLOG FL100 UNIT/1 SUB-Q (11:23)
[2020-04-06] MEDS ORDERED: TOUJEO SOL300 UNIT/1 SUB-Q (11:23)
[2020-04-06] MEDS ORDERED: INSULIN SYRING1 EA47 MISC (14:17)
[2020-04-06] MEDS ORDERED: LANTUS100 UNITS/ SUB-Q (14:17)
[2020-04-07] MEDS ORDERED: BASAGLAR K100 UNIT/1 SUB-Q (09:40)
== END 2020-04-08 09:50 | disposition home or self-care (01) | DRG 639 ==
LOC: ED 06:20 → CCU 07:57 → MS 07:57
PROVIDERS: ADMIT Student in an Organized Health Care Education/Training Program; ATTEND Student in an Organized Health Care Education/Training Program
DX: E10.10 Type 1 diabetes mellitus with ketoacidosis without coma (principal); Z20.828 Contact with and (suspected) exposure to other viral communicable diseases; F17.200 Nicotine dependence, unspecified, uncomplicated; F39 Unspecified mood [affective] disorder; R68.0 Hypothermia, not associated with low environmental temperature; F15.10 Other stimulant abuse, uncomplicated; F11.10 Opioid abuse, uncomplicated; Z91.14 Patient's other noncompliance with medication regimen; Z59.0 Homelessness; Z79.1 Long term (current) use of non-steroidal anti-inflammatories (NSAID); Z79.4 Long term (current) use of insulin; Z79.899 Other long term (current) drug therapy
CPT/HCPCS: 36415; 80048; 80053; 81001; 82010; 82800; 83735; 84100; 84132; 85025; 96374; 99285-25; C9803; J1650; J1815; J3475; J3480; J7030; J7040; J7042; J7060; J7121

== ENCOUNTER 2021-02-25 18:18 | Observation (INO) | payer OTHER ==
[~2021-02-25] VITALS: Ht 188 cm; Wt 73.1 kg
[~2021-02-25 18:18] MED LIST changes: +BASAGLAR K100 UNIT/1 SUB-Q; +INSULIN SYRING1 EA47 MISC
--- OUTSIDE RECORDS SUMMARY | 2021-02-25 18:20 | XMS ---
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 Care History Medical/Surgical 04/30/2019 [facility] Inpatient/engaged. We took the patient to detox. [facility] VISIT COUNT (12 MO.) 1 Saroj Sanders HJusto 1 [facility] 2 [facility] [address] [facility] TOTAL 5 NOTE: Visits indicate total known visits. ED/UCC VISIT TRACKING (12 MO.) 02/25/2021 18:19 [facility] MARY Garrido TYPE: Emergency COMPLAINT: - HIGH BLOOD SUGAR 07/13/2020 18:29 [facility] Zenaida Estevez ID TYPE: Emergency DIAGNOSES: - Withdrawl - Other stimulant abuse, uncomplicated - Auditory hallucinations - Homicidal ideations - Drug / Alcohol Assessment - Hyperglycemia, unspecified - Pain in right toe(s) 05/09/2020 18:49 [facility] [place] TYPE: Emergency DIAGNOSES: 0. EMS HYPERGLYCEMIA 04/27/2020 11:15 Saroj GARCIA [place] TYPE: Emergency DIAGNOSES: - Finger Injury - Thumb Laceration - Laceration without foreign body of left thumb without damage to nail, initial encounter 04/05/2020 06:20 RO[facility] MARY Garrido TYPE: Emergency COMPLAINT: - SOB INPATIENT VISIT TRACKING (12 MO.) 05/09/2020 21:05 [facility] TYPE: Pulmonology DIAGNOSES: 0. DKA 04/05/2020 07:[address] [facility] K[facility] [place] TYPE: Medical Surgical COMPLAINT: - DKA DIAGNOSES: - snf (current) use of insulin - terminal press operator (current) use of insulin - Other computer terminal operator (current) drug therapy - Type 1 diabetes mellitus with ketoacidosis without coma - Contact with and (suspected) exposure to other viral communicable diseases - Homelessness - Patient's other noncompliance with medication regimen - Opioid abuse, uncomplicated - Other stimulant abuse, uncomplicated - Other stimulant abuse, uncomplicated - Hypothermia, not associated with low environmental temperature - Hypothermia, not associated with low environmental temperature - terminal press operator (current) use of non-steroidal anti-inflammatories (NSAID) - Unspecified mood [affective] disorder - Patient's other noncompliance with medication regimen - Opioid abuse, uncomplicated - Contact with and (suspected) exposure to other viral communicable diseases - Unspecified mood [affective] disorder - Nicotine dependence, unspecified, uncomplicated - terminal press operator (current) use of non-steroidal anti-inflammatories (NSAID) - Nicotine dependence, unspecified, uncomplicated - Homelessness - Other usp (current) drug therapy [email or web address]
--- NOTE | 2021-02-25 21:20 | NUR ---
report recieved from CHIEF PHARMACIST at this time.
--- NOTE | 2021-02-25 21:30 | NUR ---
PT INSULIN DRIP INFUSING AT 8.8 UNITS/HR PER PROTOCOL.IV FLUIDS INFUSING AT 250 MLS AN HOUR. ASSESSMENT COMPLETED. CALL LIGHT WITHIN REACH. WILL CONTINUE TO MONITOR.
--- NOTE | 2021-02-25 21:49 | NUR ---
PT ARRIVED VIA STRETCHER WITH THIMBLE PRESS OPERATOR. PT EXTREMELY DROWSY AND UNABLE TO MOVE HIMSELF FROM STRETCHER TO BED. BLOOD SUGAR UPON ARRIVAL READ HIGH. BLOOD DRAWN AND SENT TO LAB FOR READING.
--- NOTE | 2021-02-25 22:46 | NUR ---
PT VOIDED 1200 MLS OF CLEAR URINE TO URINAL. ASSISTED WITH REPOSITIONING IN BED. IV FLUIDS AND INSULIN DRIP CONTINUE TO INFUSE.
--- NOTE | 2021-02-26 | NUR ---
INSULIN DRIP TITRATED PER PROTOCOL. ASSESSMENT COMPLETED. PT REAMINS DROWSY BUT AWAKENS TO VOICE AND TOUCH, FOLLOWING BASIC COMMANDS. IV FLUIDS INFUSING. LABS STILL PENDING AT THIS TIME. CALL LIGHT WITHIN REACH. WILL CONTINUE TO MONITOR.
--- NOTE | 2021-02-26 00:49 | NUR ---
DR WEST UPDATED ON PATIENT LABS, ORDERS RECIEVED (SEE EMAR).
--- NOTE | 2021-02-26 01:08 | NUR ---
INSULIN DRIP TITRATED PER PROTOCOL (SEE EMAR). PT REMAINS DROWSY, BUT AWAKENS TO VOICE AND FOLLOWS COMMANDS. CALL LIGHT WITHIN REACH. WILL CONTINUE TO MONITOR.
--- NOTE | 2021-02-26 02:08 | NUR ---
CB, NO TITRATED OF INSULIN DRIP REQUIRED AT THIS TIME, VERIFIED WITH FADY ARMANDO. PT SLEEPING, NO APPARENT DISTRESS.
--- NOTE | 2021-02-26 03:13 | NUR ---
PT BLOOD SUGARS NOW UNDER 200. NEW ORDERS PER DOCTOR WEST RECIEVED (SEE EMAR).
--- NOTE | 2021-02-26 03:40 | NUR ---
ASSESSMENT COMPLETED. PT REMAINS DROWSY, BUT WAKES TO VOICE. LUNGS SOUND CLEAR, ALL VITAL SIGNS WITHIN NORMAL LIMITS. PT DENIES PAIN, NAUSEA OR DISCOMFORT. IV FLUIDS AND INSULIN DRIP CONTINUE TO INFUSE. NO FURTHER NEEDS AT THIS TIME.
--- NOTE | 2021-02-26 04:09 | NUR ---
INSULIN DRIP TITRATED PER PROTOCOL, IV FLUIDS CONTINUE TO INFUSE. CALL LIGHT WITHIN REACH. NO ASSESSED NEEDS AT THIS TIME.
--- NOTE | 2021-02-26 05:21 | NUR ---
LAB IN ROOM TO DRAW BLOOD. WELL TOLERATED BY PT. OPENED HIS EYES AND ANSWERS QUESTIONS APPROPRIATELY. INSULIN DRIP TITRATED PER PROTOCOL (SEE EMAR). IV FLUIDS INFUSING. WILL CONTINUE TO MONITOR.
--- NOTE | 2021-02-26 06:30 | NUR ---
DR WEST UPDATED ON PATIENTS LAB RESULTS BY FADY LEIJA. ORDERS RECIEVED (SEE EMAR).
--- NOTE | 2021-02-26 07:30 | NUR ---
PATIENT SHIFT REPORT RECIEVED FROM SUPERVISOR PRODUCT INSPECTION RN. PATIENT RESTING IN BED ON INSULIN GTT AT THIS TIME. WILL CONTINUE TO CLOSELY MONITOR.
--- NOTE | 2021-02-26 08:42 | NUR ---
PATIENT RESTING IN BED, EYES CLOSED. WOKE TO VOICE, VITALS CHARTED AND PATIENT EATING JELLO. CALL LIGHT IN REACH
--- NOTE | 2021-02-26 09:30 | NUR ---
SPOKE WITH MD WEST THIS AM. WILL GIVE LONG ACTING INSULIN AND THEN STOP INSULIN GTT IN 1 HOUR FROM THAT TIME. PATIENTS DIET ADVANCED. PATIENT AGREEABLE TO PLAN OF CARE. NO OTHER NEEDS AT THIS TIME. WILL CONTINUE TO CLOSELY MONITOR.
--- NOTE | 2021-02-26 10:02 | NUR ---
LONG ACTIVING INSULIN GIVEN. PATIENTS BREAKFAST ARRIVED. WILL CONTINUE TO CLOSELY MONITOR.
--- NOTE | 2021-02-26 10:55 | NUR ---
INSULIN GTT STOPPED PER MD WEST. PATIENT ATE MOST OF HIS BREAKFAST. NO OTHER NEEDS AT THIS TIME. PATIENT STATES "IM FEELING MUCH BETTER, JUST SLEEPY STILL". LUNCH ORDERED. WILL CONTINUE TO CLOSELY MONITOR.
--- NOTE | 2021-02-26 11:42 | NUR ---
PATIENT CONTINUES TO REST IN BED, DOES WAKE TO VOICE. ICE WATER PROVIDED PER REQUEST. GLUCOSE OF 321/RN NOTIFIED. CALL LIGHT IN REACH
--- NOTE | 2021-02-26 12:49 | NUR ---
VITALS AND I&OS CHARTED. PATIENT UP INDEPENDENTLY TO BR FOR VOID AND BM. TOOTHPASTE AND WASHCLOTHS PROVIDED FOR SELF CARE. LINENS CHANGED, PATIENT DROPPED 1 OR 2 LOOSE PERSONAL SYRENGES INTO THE SHARPS CONTAINER IN ROOM. NOW SITTING AT ON SIDE OF BED EATING LUNCH. CALL LIGHT IN REACH
--- NOTE | 2021-02-26 13:00 | NUR ---
PATIENT MEDICAITONS WERE GIVEN. PATIENT WAS UP TO THE BATHROOM WITH LILIBETH PLANE RUNNER AND TOELRATED WELL. NO OTHER NEEDS AT THIS TIME. WILL CONTINUE TO CLOSELY MONITOR.
[2021-02-26] MEDS ORDERED: FREESTYLE LITE1 EAC1 TD (14:28)
[2021-02-26] MEDS ORDERED: BLOOD GLUCOSE1 EAC1 MISC (14:30)
--- NOTE | 2021-02-26 14:30 | NUR ---
WEST IN TO SEE PATIENT. PER MD PATIENT MAY DISCHARGE HOME. NO OTHER NEEDS AT THIS TIME. WILL CONTINUE TO CLOSELY MONITOR.
[2021-02-26] MEDS ORDERED: FREESTYLE LANC1 EACH MISC (14:31)
[2021-02-26] MEDS ORDERED: HUMULIN N100 UNIT/1 SUB-Q (14:35)
[2021-02-26] MEDS ORDERED: HUMULIN R100 UNIT/1 SUB-Q (14:37)
[2021-02-26] MEDS ORDERED: INSULIN SYRING MISC (14:38)
--- NOTE | 2021-02-26 15:15 | NUR ---
PATIENT AT SIDE OF BED, DISCHARGE VITALS AND I&OS CHARTED. 2 IVS REMOVED. PATIENT UP BR AND GATHERING PERSONAL BELONGINGS.
--- NOTE | 2021-02-26 15:30 | NUR ---
PATIENT READY TO GO HOME AND AWAITING DISCHARGE INSTRUCTIONS AND MEDICATIONS FROM PHARMACIST. PATIENT DENIES ANY OTHER NEEDS AT THIS TIME. BOTH IVS REMOVED. NO OTHER NEEDS AT THIS TIME.
--- NOTE | 2021-02-26 16:03 | NUR ---
REVIEWED DISCHARGE INSTRUCTIONS WITH PATIENT. PATIENT REPEATED INFORMATION BACK. PHARMACIST LUCAS IN TO REVIEW MEDICATIONS WITH PATIENT AND TO SEND PATIENT HOME WITH SOME INSULIN ON HAND. PATIENT GATHERED ALL BELONINGS, INSTRUCTIONS, AND MEDICATIONS AND LEFT WITH LILIBETH BOLANOS. PATIENT TOLERATED WELL. NO FURTHER QUESTIONS. PATIENT WILL WAIT AT THE FRONT FOR THE TAXI TO ARRIVE.
== END 2021-02-26 15:45 | disposition home or self-care (01) ==
LOC: ED 18:18 → CCU 18:20
PROVIDERS: ADMIT Internal Medicine; ATTEND Internal Medicine
DX: E10.10 Type 1 diabetes mellitus with ketoacidosis without coma (principal); J45.20 Mild intermittent asthma, uncomplicated; F90.9 Attention-deficit hyperactivity disorder, unspecified type; F17.210 Nicotine dependence, cigarettes, uncomplicated; F15.90 Other stimulant use, unspecified, uncomplicated; Z79.4 Long term (current) use of insulin; Z20.822 Contact with and (suspected) exposure to COVID-19
CPT/HCPCS: 80048; 80053; 81001; 82010; 82800; 82803; 82947; 85025; 96374; 99283-25; A9270; C9803; G0378; G0480; J1815; J3480; J7030; J7121; U0003

== ENCOUNTER 2021-03-01 12:23 | Observation (INO) | payer OTHER ==
[~2021-03-01] VITALS: Ht 188 cm; Wt 71.7 kg
[~2021-03-01 12:23] MED LIST changes: +BLOOD GLUCOSE1 EAC1 MISC; +FREESTYLE LANC1 EACH MISC; +HUMULIN N100 UNIT/1 SUB-Q; +HUMULIN R100 UNIT/1 SUB-Q; +INSULIN SYRING MISC
--- OUTSIDE RECORDS SUMMARY | 2021-03-01 12:26 | XMS ---
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 Care History Medical/Surgical 04/30/2019 [facility] Inpatient/engaged. We took the patient to detox. [facility] VISIT COUNT (12 MO.) 1 Saroj Sanders H. 1 [facility] 3 [facility] [address] [facility] TOTAL 6 NOTE: Visits indicate total known visits. ED/UCC VISIT TRACKING (12 MO.) 03/01/2021 12:24 [facility] Parnell [place] TYPE: Emergency COMPLAINT: - DIABETIC ISSUE 02/25/2021 18:19 [facility] MARY Parnell [place] TYPE: Emergency COMPLAINT: - HIGH BLOOD SUGAR 07/13/2020 18:29 [facility]stevez [place] TYPE: Emergency DIAGNOSES: - Withdrawl - Other stimulant abuse, uncomplicated - Auditory hallucinations - Homicidal ideations - Drug / Alcohol Assessment - Hyperglycemia, unspecified - Pain in right toe(s) 05/09/2020 18:49 [facility] TYPE: Emergency DIAGNOSES: 0. EMS HYPERGLYCEMIA 04/27/2020 11:15 Saroj PEDRO TYPE: Emergency DIAGNOSES: - Finger Injury - Thumb Laceration - Laceration without foreign body of left thumb without damage to nail, initial encounter 04/05/2020 06:20 ROSE MARY Garrido TYPE: Emergency COMPLAINT: - SOB INPATIENT VISIT TRACKING (12 MO.) 02/25/2021 18:20 ROSE MARY Garrido TYPE: Observation COMPLAINT: - DKA DIAGNOSES: - Other stimulant use, unspecified, uncomplicated - Mild intermittent asthma, uncomplicated - Nicotine dependence, cigarettes, uncomplicated - watermelon inspector (current) use of insulin - Attention-deficit hyperactivity disorder, unspecified type - Type 1 diabetes mellitus with ketoacidosis without coma 05/09/2020 21:05 [facility] TYPE: Pulmonology DIAGNOSES: 0. DKA 04/05/2020 07:57 ROSE MARY Garrido TYPE: Medical Surgical COMPLAINT: - DKA DIAGNOSES: - watermelon inspector (current) use of insulin - long-term (current) use of insulin - Other buttermaker helper (current) drug therapy - Type 1 [...] not associated with low environmental temperature - watermelon inspector (current) use of non-steroidal anti-inflammatories (NSAID) - Unspecified mood [affective] disorder - Patient's other noncompliance with medication regimen - Opioid abuse, uncomplicated - Contact with and (suspected) exposure to other viral communicable diseases - Unspecified mood [affective] disorder - Nicotine dependence, unspecified, uncomplicated - watermelon inspector (current) use of non-steroidal anti-inflammatories (NSAID) - Nicotine dependence, unspecified, uncomplicated - Homelessness - Other shelter (current) drug therapy [email or web address]
--- NOTE | 2021-03-01 16:20 | NUR ---
26 YEAR OLD MALE PATIENT ADMITTED TO CCU FROM ED VIA STRETCHER UNDER DR. VARGAS WITH DX OF TYPE 1 DIABETES. RECENT HOSPITALIZATION OF DKA, WAS DISCHARGED ON 02/26/21. IS HOMLESS AND HAS NOT TAKEN HIS INSULIN SINCE HE WAS DISCHARGED. UPON ADMIT, PATIENT IS DROWSY. INSULIN GTT INFUSING, WILL BE MONITORING ACCUCHECKS Q 1 HR. ADMISSION PROCESS STARTED.
--- NOTE | 2021-03-01 17:10 | NUR ---
Notified by Dr. Lr of pts frequent admissions, homeless, not taking or filling insulin. Went to pts. room and asked if this time he is will to accept a visit from [facility] for his drug use and he states yes. Asked if we could assist with housing if he would accept and he states yes. Called and spoke with MICHELLE and Gabriella will try to visit tomorrow am, is she is unable to do so, someone will be here by noon to speak Junior.
--- NOTE | 2021-03-01 18:00 | NUR ---
ACCUCHECK 325, INSULIN GTT DECREASED TO 5 UNITS/HR. PATIENT REMAINS DROWSY.
--- NOTE | 2021-03-01 20:00 | NUR ---
1899 BLOOD GLUCOSE CHECKED BY JANNETTE SHRESTHA AND INSULING TITRATED WITH LISS SHRESTHA SECOND CHECK. 1999 ACCU CHECK DONE BY LISS SHRESTHA WITH LINDA SHRESTHA VERIFIED. BLOOD GLUCOSE LESS THAN 200, FLUIDS CHACKED PER ORDER. CONTINUED LR BOLUS AT 200 ML/HR CONCURRENT. PATIENT DROWSY AND SLEEPING, WAKES EASILY TO VOICE.
--- NOTE | 2021-03-01 21:00 | NUR ---
PATIENT PROVIDED WITH MEDS PER ORDER. INSULIN TITRATED PER PROTOCOL, VERIFIED WITH FAVIO SHRESTHA. PATIENT WOKE WITH VOICE. REQUIRED SEVERAL MINS OF ENCOURAGMENT TO TAKE PO MEDS LEFT FROM DAYSHIFT. PATIENT DENIED ANY CONCERNS. IV FLUIDS PER ORDER, SITE WNL.
--- NOTE | 2021-03-01 22:10 | NUR ---
IN ROOM TO CHECK ON PATIENT AND TO OBTAIN BLOOD SUGAR, IT IS 128, TITRATED INSULIN DRIP TO 0.7 CONFIRMED WITH PEDRO SHRESTHA. PATIENT DENIES OTHER NEEDS, QUICKLY GOES BACK TO RESTING.
--- NOTE | 2021-03-02 00:13 | NUR ---
ACCU CHECK DONE AND INSULIN TITRATED PER ORDER. PATIENT WAKES BREIFLY. URANL OFFERED. PATIENT DENIED NEED TO VOID. VS STABLE. IV FLUIDS PER ORDER, SITE WNL.
--- NOTE | 2021-03-02 02:17 | NUR ---
patient continues to sleep soundly. wakes easily to voice. accu check done, insulin drip titrated per protocol. patient denied need void. iv fluids per order, site wnl.
--- NOTE | 2021-03-02 04:07 | NUR ---
PATIENT RESTING IN BED. WAKES EASILY TO VOICE. DENIED NEEDS. ACCU CHECK AND SSI DONE. FLUIDS PER ORDER, SITE WNL.
--- NOTE | 2021-03-02 07:30 | NUR ---
PATIENT SHIFT REPORT RECIEVED FROM DAIRY HAND RN. PATIENT RESTING IN BED. PATIENT CALLS APPROPRIATELY. PER REPROT INSULIN GTT STOPPED AND FLUIDS CHANGED TO LR.
[2021-03-02] MEDS ORDERED: FREESTYLE LITE1 EAC1 TD ×2 (08:28→13:59)
--- NOTE | 2021-03-02 09:10 | NUR ---
PATIENT ASSESSMENT COMPELTED. PATIENTS BREATH SOUNDS CLEAR. BOWEL TONES ACTIVE. PATIENT DENIES NAUSEA. BREAKFAST ORDERED. BLOOD SUGAR TAKEN. INSULIN GIVEN. PATIENT DENIES ANY NEEDS AT THIS TIME. WILL CONTINUE TO CLOSELY MONITOR. PATIENT CALLS APPROPRIATELY.
--- NOTE | 2021-03-02 09:10 | NUR ---
Spoke with [facility] Rn, [facility] has not arrived, but will be in shortly to discuss rehab with this pt.
[2021-03-02] MEDS ORDERED: BLOOD GLUCOSE1 EAC1 MISC ×2 (09:22→13:59)
[2021-03-02] MEDS ORDERED: HUMULIN R100 UNIT/1 SUB-Q ×3 (09:25→13:59)
[2021-03-02] MEDS ORDERED: FREESTYLE LANC1 EACH MISC ×2 (09:27→13:59)
[2021-03-02] MEDS ORDERED: HUMULIN N100 UNIT/1 SUB-Q ×2 (09:29→13:59)
[2021-03-02] MEDS ORDERED: INSULIN SYRING1 EA13 SUB-Q ×2 (09:32→13:59)
--- NOTE | 2021-03-02 09:36 | NUR ---
MED REC COMPLETE
--- NOTE | 2021-03-02 10:30 | NUR ---
PATIENT CALLED TO GET UP AND USE BATHROOM. PATIENT UP INDEPENDENT WALKING IN THE ROOM. NO OTHER NEEDS AT THIS TIME. WILL CONTINUE TO CLOSELY MONITOR.
--- NOTE | 2021-03-02 12:15 | NUR ---
PATIENTS VITALS DONE, MEDICATIONS GIVEN, ASSESSMENT REMAINS UNCHANGED AT THIS TIME. CALLED LAB TOP UPDATE THAT MD PUT NEW LAB ORDERS IN. LUNCH AT THE BEDSIDE. WILL CONTINUE TO CLOSELY MONITOR.
--- NOTE | 2021-03-02 12:18 | NUR ---
RETIREMENT BENEFITS SPECIALIST FROM [facility] IN TO TALK WITH PT.
--- NOTE | 2021-03-02 12:35 | NUR ---
PATIENT VISITING WITH [facility] FOR TREATMENT OPTIONS.
--- NOTE | 2021-03-02 14:00 | NUR ---
Notified by Rn, pt will be going to in patient rehab and [facility] would like a PCP assigned to this pt from the [facility]. Callled and spoke with Gabriella from [facility] and received the phone number for [facility] in [place] [phone]. Called and spoke with Eligio and he states there is no need as they work with [facility] and will get pt set up with a pcp and [facility] [facility]. Pt will need his own insulin and supplies. As I was speaking with Eligio, Pharmacist, Jessica, arrives in my office asking if we can provide glucometer. Informed I will make some clemencia. Called Kelsey Yuly from [facility] and neither she or labelling machine operator currently have glucometers. Called my pharmacy, [facility], and asked if they would be willing to donate a glucometer and strips for 1 month. Jami, the manager money, states she will. She will have it under my name. Called Gabriella from [facility] and she will pickling solution maker on her way to get Junior. Spoke with Jessica from pharm and they will provide insulin for 1 month. Took cooler with ice pack to [facility] and updated the nurse to all of the above and asked if they would place his insulin in the cooler for him. They already have supplies to go with insulin ready. They asked what time [facility] was picking up and I let them know whenever they are ready for dc. They ask Gabriella arrive at [phone]. Called and updated Gabriella. She will pick Junior up and take him to a motel provided by [facility] for tonight and then to [facility] tomorrow. She states the Rehab lasts for up to one year.
--- NOTE | 2021-03-02 14:30 | NUR ---
THIS RN WORKING ON PATIENT DISCHARGE AT THIS TIME.
--- NOTE | 2021-03-02 15:21 | NUR ---
THIS RN HAS BEEN IN WITH PATIENT FOR PAST HOUR VISITING AND PREPARING PATIENT FOR DISCHARGE. ALL SUPPLIES ARE HERE NOW AND AWAITING TRANSPORTATION FROM [facility] FOR PATIENT. PATIENT IS WORKING WITH [facility] AND WILL BE STAYING WITH THEM TONIGHT AND THEN TRANSPORTING PATIENT TO REHAB FACILITY TOMORROW FOR ONGOING TREATMENT. PATIENT OPENLY TALKING WITH STAFF ABOUT HIS PLAN FOR HELP AND PRIOR DRUG USE. IV DCD. BELONGINGS RETURNED. DINNER ORDERED AND TO BE SENT WITH PATIENT.
--- NOTE | 2021-03-02 15:31 | NUR ---
[facility] HERE TO TRANSPORT PATIENT. ALL DISCHARGE INSTRUCTIONS, MEDICATIONS, BELONGINGS SENT WITH PATIENT. ALL QUESTIONS ANSWERED. IV DCD. NO OTHER NEEDS AT THIS TIME. PATIENT LEFT WITH KRYSTLE FROM [facility].
== END 2021-03-02 15:30 | disposition home or self-care (01) ==
LOC: ED 12:23 → CCU 12:25
PROVIDERS: ADMIT Student in an Organized Health Care Education/Training Program; ATTEND Student in an Organized Health Care Education/Training Program
DX: E10.10 Type 1 diabetes mellitus with ketoacidosis without coma (principal); F17.200 Nicotine dependence, unspecified, uncomplicated; J45.20 Mild intermittent asthma, uncomplicated; Z59.0 Homelessness; Z91.19 Patient's noncompliance with other medical treatment and regimen; Z20.822 Contact with and (suspected) exposure to COVID-19
CPT/HCPCS: 80048; 80053; 81001; 82010; 82800; 83735; 84100; 85025; 96361; 96374; 96375; 96376; 99285-25; C9803; G0378; J1815; J2405; J3475; J7030; J7042; J7121; U0003